=== PATIENT | female | born 1960 | race Caucasian/White ===

== ENCOUNTER 2016-12-06 09:13 | Day surgery (SDC) | payer OTHER ==
--- NOTE | 2016-12-03 09:00 | HP ---
DATE OF CLINIC: 11/23/16 EARLENE VELAZQUEZ : 1960 PLANNED PROCEDURE: Left Knee Arthroscopic Partial Medial Meniscectomy DATE OF SURGERY: December 06, 2016 SURGEON: Rafiq Ames M.D. HISTORY OF PRESENT ILLNESS Earlene Velazquez is a 56 year old female. * Medication list reviewed with patient allergy list reviewed with patient. This is a 56-year-old female who is here with left knee pain. She has had pain on and off for about the last 10 years, but has noticed it really really got worse just in the last few months. She does have one particular moment where she stepped wrong and felt it pop in her knee and was immediately unable to bear weight. 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 She has tried physical therapy without any real relief of her symptoms. She is just doing exercises and feels like it is not making anything any better. She does have some mechanical symptoms with catching and popping and some occasional giving way as well as pain in the knee that really limits her activities. She is taking ibuprofen or Aleve [id number]; she has not had any injections, no history of any surgeries on this knee. After discussion and review of treatment options, both operative and nonoperative, she has elected to proceed with surgery and presents today preoperatively. PAST MEDICAL AND SURGICAL HISTORY: Are as documented. SOCIAL HISTORY Behavioral: Caffeine use 5 cups a day. Smoking status: Never smoker. Alcohol: Not using alcohol. Drug Use: Not using drugs. REVIEW OF SYSTEMS No recent constitutional symptoms to include fevers and chills. No recent cardiovascular symptoms to include chest pain or palpitations. No recent respiratory symptoms to include shortness of breath or recent infections. PHYSICAL FINDINGS * Vitals taken 11/23/2016 03:10 pm BP-Sitting L 117/67 mmHg BP Cuff Size Regular Pulse Rate-Sitting 76 bpm Respiration Rate 16 per min Temp-Oral 98.1 F Height 62 in Weight 211 lbs 6.4 oz Body Mass Index 38.7 kg/m2 Body Surface Area 1.96 m2 Pain Level 6 Ears, Nose, Throat: * ENT: normal. Lungs: * Clear to auscultation. Cardiovascular: Heart Rate And Rhythm: * Normal. Abdomen: * Normal. Neurological: Motor: * Dominant Hand = Right Hand. Patient is a well-developed, well-nourished female in no acute distress. They are awake, alert and conversant throughout the encounter. CARDIOVASCULAR: Intact peripheral pulses on bilateral lower extremities. No significant edema on inspection of bilateral lower extremities. NEUROLOGIC: Patient had intact coordinated composite motion of the bilateral lower extremities and sensation intact to light touch in all distributions of bilateral lower extremities. PSYCHIATRIC: Patient was oriented to person, place and time and displayed appropriate mood and affect during the encounter. SKIN: Exam of the skin on bilateral lower extremities showed no significant scars, lesions, rashes or masses. FOCUSED MUSCULOSKELETAL EXAM: The patient is ambulating with some antalgia on the left side. She has normal resting station of the bilateral hips, knees and ankles. Her left knee has a mild effusion. No erythema or ecchymosis. She has tenderness to palpation along the medial joint line and in the medial retinaculum of the patella. Range of motion is from 0 to about 110 degrees of flexion. She is stable to varus and valgus stress. Although she has some pain when we varus stress her. Miose's maneuver definitely increases her pain, although there is no actual catch or click. She is stable to anterior and posterior drawer with a negative Aly and negative pivot shift. She can do a straight leg raise. She has 5/5 strength and flexion and extension. Her leg is warm and well perfused distally with intact sensation. IMAGING Review of her x-rays shows there is a pattern arthrosis with some osteophytosis and degenerative changes in the medial and patellofemoral compartments primarily. No fractures or dislocations. ASSESSMENT A 56-year-old female with what appears to be meniscal tear versus a chondral injury in the context of varus pattern arthrosis. PREVIOUS TESTS * Test: THYROID STIMULATING HORMONE Report Date: 11/16/2016 TSH 2.08 u[iU]/mL * Test: FREE T4 Report Date: 11/16/2016 FREE T4 1.07 ng/dL * Test: FREE T3 Report Date: 11/16/2016 FREE T3 2.8 pg/mL THERAPY * Patient not eligible for fall risk assessment. PLAN * Derang of post horn of medial mensc d/t old tear/inj, l knee Percocet 5-325 MG TABS, Take 1-2 tablets by mouth every 4 hours as needed for pain, 14 days, 0 refills * Knee Arthroscopy (Left) with PMM SURGICAL CONSENT We have discussed surgical options including left knee arthroscopic PMM and nonoperative management. The patient was counseled in detail regarding the diagnosis, treatment options available, prognosis of each treatment option and the potential risks and complications. The risks of surgery include, but are not limited to, anesthetic , neurovascular complications, pulmonary embolism, deep vein thrombosis, wound dehiscence, failure of any or all of the discussed procedures, infection of the joint or surrounding soft tissue, need for revision surgery, chronic pain, limitations in activities of daily living, inability to return to work, and loss of normal range of motion or functional use of the extremity. There is the possibility of failure over time that may require additional operative or nonoperative treatment. The patient acknowledged that there are a number of perioperative risks not mentioned here and would still like to proceed. The patient is aware of and understands these risks, and wishes to proceed with the proposed surgical procedure and other procedures as indicated at the time of surgery. We will have the patient see their PCP for a preoperative medical risk assessment. The preoperative instructions were reviewed with the patient and all questions were answered.
[~2016-12-06 09:13] MED LIST: FENTANYL 100 MCG/2 ML VIAL ONE; MIDAZOLAM HCL 1 MG/ML 2ML VIAL ONE; PROPOFOL 20 ML IV ONE
[2016-12-06] MEDS ORDERED: CEFAZOLIN SODIUM 2 GRAM PREMIX 100 ML IV PRN (09:15)
[2016-12-06] MEDS ORDERED: LACTATED RINGERS 1,000 ML ONE (09:17)
[2016-12-06] MEDS ORDERED: CEFAZOLIN SODIUM 2 GRAM PREMIX 100 ML IV ONE (09:17)
[2016-12-06] MEDS ORDERED: IV START KIT ONE (09:17)
[2016-12-06] MEDS ORDERED: BUPIVACAINE 0.5% W/EPI SDV 30 ML VIAL ONE (10:01)
[2016-12-06] MEDS ORDERED: DEXAMETHASONE SOD PHOS 4 MG/1 ML VIAL ONE (10:27)
[2016-12-06] MEDS ORDERED: ONDANSETRON 4 MG/2ML 2 ML VIAL ONE (10:27)
[2016-12-06] MEDS ORDERED: LABETALOL HCL 5 MG/ML 20ML VIAL IV PRN (10:40)
[2016-12-06] MEDS ORDERED: HYDRALAZINE HCL 20 MG/1 ML VIAL IV PRN (10:40)
[2016-12-06] MEDS ORDERED: HYDROMORPHONE HCL 1 MG/ML SYRINGE IV PRN ×2 (10:40→12:03)
[2016-12-06] MEDS ORDERED: ONDANSETRON 4 MG/2ML 2 ML VIAL IV PRN ×2 (10:40→12:03)
[2016-12-06] MEDS ORDERED: NALOXONE HCL 0.4 MG/ML VIAL IV PRN (10:40)
[2016-12-06] MEDS ORDERED: FENTANYL 100 MCG/2 ML VIAL IV PRN (10:40)
[2016-12-06] MEDS ORDERED: MEPERIDINE 25 MG/ML SYRINGE IV PRN (10:40)
[2016-12-06] MEDS ORDERED: ATROPINE SULFATE 0.4 MG/1 ML VIAL IV PRN (10:40)
[2016-12-06] MEDS ORDERED: PROMETHAZINE HCL 25 MG/ML VIAL IM PRN (10:40)
[2016-12-06] MEDS ORDERED: LACTATED RINGERS 1,000 ML IV SCH ×2 (10:45→12:03)
--- NOTE | 2016-12-06 11:15 | PCMBPN ---
Brief Post Op Note: Date of Procedure: 12/06/16 Start Time: 1030 Preoperative Diagnosis: 1. left knee medial meniscus tear Postoperative Diagnosis: 1. Same 2. left knee degenerative osteoarthritis Procedure: left knee arthroscopy, partial medial meniscectomy Surgeon: Rafiq Ames MD Assist: none Anesthesia: Waldemar Stone Findings: as above; extensive grade IV chondrmalacia with [id number] articulation in medial and PF compartments Condition: stable to PACU Complications: none IV Fluids: 700 mLs of LR Urine Output: 0 mLs Estimated Blood Loss: 5 mLs Tourniquet Time: 20 minutes at 250 mm Hg Specimens: none Implants: none Drains: none Rafiq Ames MD
[2016-12-06] MEDS ORDERED: OXYCODONE/ACETAMINOPHEN 5/325 MG TABLET PO PRN (12:03)
[2016-12-06] MEDS ORDERED: ACETAMINOPHEN 325 MG TABLET PO PRN (12:03)
[2016-12-06] MEDS ORDERED: DIPHENHYDRAMINE HCL 50 MG/1 ML VIAL IV PRN (12:03)
[2016-12-06] MEDS ORDERED: OXYCODONE/ACETAMINOPHEN 5/325 MG TABLET ONE (12:50)
--- NOTE | 2016-12-07 09:21 | OP ---
Earlene FONSECA : 1960 [id number] DATE OF PROCEDURE: December 06, 2016 PREOPERATIVE DIAGNOSIS: Left knee medial meniscus tear. POSTOPERATIVE DIAGNOSIS: Left knee medial meniscus tear with left knee degenerative osteoarthritis. PROCEDURE PERFORMED: LEFT KNEE ARTHROSCOPY WITH PARTIAL MEDIAL MENISCECTOMY. SURGEON: Rafiq Ames M.D. PRIVACY MANAGER: Nolan Bunch P.A.-C. ANESTHESIA: Alon Stone C.R.N.A. SPECIMENS: No material was sent to the laboratory. ESTIMATED BLOOD LOSS: 5 mL FLUIDS REPLACED: 700 mL of crystalloid. TOURNIQUET TIME: 20 minutes at 250 mmHg. URINE OUTPUT: None. IMPLANTS: None. DRAINS: No drains. INDICATIONS: This is a 56-year-old female who complains of pain and mechanical symptoms in the right knee that have been increasing over time and have not responded to a course of nonoperative measures. Patient has an exam and imaging studies which are consistent with the above. Given failure to improve with nonoperative measures patient was consented for left knee arthroscopy with partial medial meniscectomy. The risks, benefits and alternatives were discussed at length with that patient and they elected to proceed with surgery. Informed consent was obtained and documented in the chart and the patient was placed on the schedule the first available convenience. DESCRIPTION OF PROCEDURE: The patient was identified in the preoperative holding area where they were marked with an indelible marker by the operating surgeon. Patient was taken to the operating room where they were placed in the supine position the operating room table. A general anesthesia was induced, perioperative antibiotics were administered and a well padded pre-calibrated nonsterile tourniquet was placed on the left upper thigh. Patient was prepped and draped in the usual sterile fashion for surgery. An operative time out was performed and confirmed by all members of the operative team confirming the patient identity, procedure to be performed and the laterally for that procedure. All necessary personnel, equipment and implants were in place and there were no safety concerns. The leg was elevated and exsanguinated using the Esmarch bandage and the tourniquet was inflated to 250 mmHg. A standard lateral portal was created and the 30 degree viewing arthroscope was inserted into the knee. Optics were directed anteromedially and a medial portal was localized and created in a standard fashion. A probe was inserted through this medial portal and used in completion of the diagnostic arthroscopy with the following findings: The patient had extensive grade 4 chondromalacia with bone on bone articulation of both the medial and patellofemoral compartments. She had a tear of the posterior horn of the medial meniscus. The lateral meniscus was intact as was the lateral compartment. ACL and PCL were intact. There were no significant loose bodies identified. After completion of diagnostic arthroscopy the probe was exchanged for an arthroscopic biter and this was used to resect back the medial meniscus to a stable rim. This was then exchanged for arthroscopic resector shaver which was used to complete the partial medial meniscectomy and perform shaving chondroplasty of the medial and patellofemoral compartments. At this point we felt that we had addressed the patient's intra-articular pathology and so the camera and instruments were removed from the knee. The portal sites were closed with #4-0 Nylons; 20 mL of 0.5% Marcaine was injected into the knee for perioperative analgesia. A sterile dressing of Xeroform, fluffs, ABDs, web roll and then an ODIN bandage from ankle to the thigh was applied. The tourniquet was deflated, the drapes were removed. The patient was awakened from anesthesia and extubated in the operating room without difficulty. Patient was transferred to a stretcher and taken postoperatively to the post anesthesia care unit in stable condition. There were no observed intraoperative complications during this procedure. Job [id number] Cc: [facility]
== END 2016-12-06 16:56 | disposition home or self-care (01) ==
LOC: SDC 09:13
PROVIDERS: ATTEND Orthopaedic Surgery
PROC: 0SBD4ZZ Excision of Left Knee Joint, Percutaneous Endoscopic Approach (ICD-10-PCS; principal; 2016-12-06)
DX: M23.222 Derangement of posterior horn of medial meniscus due to old tear or injury, left knee (principal); M17.12 Unilateral primary osteoarthritis, left knee; M94.262 Chondromalacia, left knee; E03.9 Hypothyroidism, unspecified; G47.30 Sleep apnea, unspecified
CPT/HCPCS: 29881; J3010 ×2; J1100; A9270; J2250; J2405; J7120; J0690